=== PATIENT | female | born 1955 | race American Indian/Alaskan Native ===

== ENCOUNTER 2018-09-07 11:06 | Outpatient (CLI) | payer MEDICARE | END 2018-09-07 11:07 | disposition home or self-care (01) | LOC: C.MRIC 11:06 | DX: R10.84 Generalized abdominal pain (principal) ==

== ENCOUNTER 2018-09-09 10:22 | Outpatient (CLI) | payer MEDICARE | END 2018-09-09 10:23 | disposition home or self-care (01) | LOC: C.MRIC 10:22 | DX: D27.9 Benign neoplasm of unspecified ovary (principal) ==